=== PATIENT | female | born 1980 | race Caucasian/White ===

== ENCOUNTER 2018-12-21 10:24 | Emergency (ER) | payer OTHER ==
[~2018-12-21] VITALS: Ht 165.1 cm; Wt 61.2 kg
[2018-12-21] MEDS ORDERED: ZOLOFT100 MG (10:54)
== END 2018-12-21 11:42 | disposition home or self-care (01) ==
LOC: ER 10:24
DX: F43.29 Adjustment disorder with other symptoms (principal); F06.4 Anxiety disorder due to known physiological condition